=== PATIENT | male | born 1990 | race Caucasian/White ===

== ENCOUNTER 2022-02-14 03:46 | Emergency (ER) | payer OTHER ==
[~2022-02-14] VITALS: Ht 177.8 cm; Wt 97.5 kg
[2022-02-14 03:48] VITALS: BP 151/88
--- NOTE | 2022-02-14 03:51 | NUR ---
pt to [facility]
--- NOTE | 2022-02-14 04:32 | NUR ---
PATIENT TO RAD VIA W/C
[2022-02-14 05:20] VITALS: BP 151/88
--- NOTE | 2022-02-14 05:20 | NUR ---
PATIENT [facility] POLICE DEPT. PATIENT EXAMINED BY DR. VARGAS. PATIENT MEDICALLY CLEARED AND RELEASED IN CUSTODY IN STABLE CONDITION. ORIGINAL PRE-BOOK FORM GIVEN TO OFFICER TONY.
== END 2022-02-14 05:20 ==
LOC: MED 03:46
DX: S29.011A Strain of muscle and tendon of front wall of thorax, initial encounter (principal); Z72.89 Other problems related to lifestyle; V49.88XA Car occupant (driver) (passenger) injured in other specified transport accidents, initial encounter; Y93.89 Activity, other specified; Y92.89 Other specified places as the place of occurrence of the external cause; Y99.8 Other external cause status
CPT/HCPCS: 71101; 99283